=== PATIENT | male | born 1990 | race Caucasian/White ===

== ENCOUNTER 2025-08-04 13:04 | Outpatient (AMB) | payer OTHER, SELFPAY ==
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
[2025-08-04 13:10] VITALS: BP 100/68; PULSE 67; TEMP 36.6; O2SAT 98; BMI 23.2
== END 2025-08-04 13:51 | disposition home or self-care (01) ==
LOC: HO.HMCH 13:05
PROVIDERS: Visit Provider Internal Medicine
DX: Z00.00 Encounter for general adult medical examination without abnormal findings (principal); M25.512 Pain in left shoulder; G89.29 Other chronic pain; F17.200 Nicotine dependence, unspecified, uncomplicated

== ENCOUNTER → 2025-08-04 13:04 | Outpatient (BNVA) | payer OTHER, SELFPAY | PROVIDERS: Visit Provider Internal Medicine | DX: Z00.00 Encounter for general adult medical examination without abnormal findings (principal); M25.512 Pain in left shoulder; G89.29 Other chronic pain; F17.200 Nicotine dependence, unspecified, uncomplicated; Z98.818 Other dental procedure status | CPT/HCPCS: 99202; 99385 ==